=== PATIENT | female | born 1960 | race Caucasian/White ===

== ENCOUNTER → 2016-09-11 | Outpatient (CLI) | payer BC ==
[~2016-09-11] MED LIST: MULTI-VITAMIN1 EAC4 PO
== END | disposition home or self-care (01) ==
LOC: CDC 14:12
DX: Z01.810 Encounter for preprocedural cardiovascular examination (principal); D05.11 Intraductal carcinoma in situ of right breast; C50.912 Malignant neoplasm of unspecified site of left female breast
CPT/HCPCS: 93000

== ENCOUNTER 2016-09-21 08:29 | Day surgery (SDC) | payer BC ==
[~2016-09-21] VITALS: Ht 165.1 cm; Wt 65.7 kg
[2016-09-21 08:57] VITALS: BP 137/63
[2016-09-21 19:17] VITALS: BP 133/61
[2016-09-21 23:28] VITALS: BP 114/57
[2016-09-22 03:22] VITALS: BP 107/59
[2016-09-22 07:58] VITALS: BP 107/63
== END 2016-09-22 11:13 | disposition home or self-care (01) ==
LOC: SDC 08:29 → EDSTATUS 16:04 → 2SOUTH 16:04 → SDC 16:05 → 2SOUTH 16:44 → 2EAST 16:44 → 2SOUTH 16:44 → 2EAST 19:04
DX: C50.412 Malignant neoplasm of upper-outer quadrant of left female breast (principal); C50.411 Malignant neoplasm of upper-outer quadrant of right female breast; Z17.0 Estrogen receptor positive status [ER+]; Z80.3 Family history of malignant neoplasm of breast; F17.200 Nicotine dependence, unspecified, uncomplicated; E78.5 Hyperlipidemia, unspecified; Z82.49 Family history of ischemic heart disease and other diseases of the circulatory system; Z81.1 Family history of alcohol abuse and dependence
CPT/HCPCS: 78195; 78999; 88305; 88307; A9541; G0378; J0131; J0330; J0690; J1100; J1170; J1885; J2250; J2405; J3480; S0020

== ENCOUNTER → 2017-12-03 | Outpatient (CLI) | payer BC, OTHER ==
[~2017-12-03] MED LIST changes: +ARIMIDEX1 MG PO; +COMPAZINE10 MG PO; +ZOFRAN8 MG PO
== END | disposition home or self-care (01) ==
LOC: AMB 08:22
DX: Z45.2 Encounter for adjustment and management of vascular access device (principal); I87.8 Other specified disorders of veins; Z92.21 Personal history of antineoplastic chemotherapy